=== PATIENT | male | born 1995 ===

== ENCOUNTER 2017-11-15 15:43 | Emergency (ER) | payer OTHER ==
[2017-11-15 15:48] VITALS: BMI 29.7
[2017-11-15 15:53] VITALS: TEMP 98.7
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
--- NOTE | 2017-11-15 16:48 | RAD ---
PROCEDURE: Right Hand Radiographs. HISTORY: hand pain COMPARISON: None. FINDINGS: BONES: Normal. No fracture. JOINTS: Normal. No osteoarthritic changes. SOFT TISSUES: Normal. OTHER FINDINGS: None. IMPRESSION: Normal right hand radiographs.
[2017-11-15 17:14] VITALS: BP 107/67; PULSE 79; RESP 17; O2SAT 100
== END 2017-11-15 17:34 | disposition home or self-care (01) ==
LOC: ED 15:43
DX: M79.641 Pain in right hand (principal)